=== PATIENT | male | born 1990 | race Caucasian/White ===

== ENCOUNTER 2019-03-07 15:12 | Emergency (ER) | payer SELFPAY ==
[~2019-03-07] VITALS: Ht 182.9 cm; Wt 120.2 kg
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
--- NOTE | 2019-03-07 16:25 | NUR ---
Patient discharged to home in stable conditon. Written and verbal after care instructions given. Patient verbalizes understanding of instructions. ALL BELONGINGS W/ PT. PT SELF-AMBULATED W/O DIFFICULTY.
[2019-03-07 16:26] VITALS: BP 112/72
== END 2019-03-07 16:27 | disposition home or self-care (01) ==
LOC: ER 15:12
DX: M25.512 Pain in left shoulder (principal); M54.6 Pain in thoracic spine; Z88.0 Allergy status to penicillin; V43.52XA Car driver injured in collision with other type car in traffic accident, initial encounter; Y93.89 Activity, other specified; Y92.89 Other specified places as the place of occurrence of the external cause; Y99.8 Other external cause status
CPT/HCPCS: 72072; 73030; A4663